=== PATIENT | female | born 1985 | race African-American/Black ===

== ENCOUNTER 2016-12-15 20:25 | Emergency (ER) | payer OTHER ==
[2016-12-15 20:38] VITALS: BP 149/50; PULSE 86; TEMP 99.4; BMI 44.3
[2016-12-15 21:39] LABS: URINE APPEARANCE CLEAR; URINE BILIRUBIN NEGATIVE (NEGATIVE); URINE BLOOD 1+ (NEGATIVE); URINE COLOR STRAW; URINE GLUCOSE (UA) NEGATIVE (NEGATIVE); URINE KETONE NEGATIVE (NEGATIVE); URINE NITRITE NEGATIVE (NEGATIVE); URINE PROTEIN NEGATIVE (NEGATIVE); URINE UROBILINOGEN NEGATIVE mg/dL (0.2-1.0)
[2016-12-15 21:47] LABS: URINE LEUK ESTERASE 1+ (NEGATIVE)
[2016-12-15 21:55] LABS: URINE RBC 6 /hpf (0-3); URINE WBC 24 /hpf (3-5)
--- NOTE | 2016-12-15 22:04 | PDOC ---
History of Present Illness - General Chief Complaint: Vaginal Sxs Stated Complaint: VAGINAL DISCOMFORT Time Seen by Provider: 12/15/16 21:05 History Source: Patient Exam Limitations: No Limitations - History of Present Illness Initial Comments: 12/15/16 23:00 Chief complaint: Vaginal burning History of present illness: Patient is a 31-year-old female with a history of anemia here today complaining of vaginal burning 3 days. Patient is unsure whether she has frequency due to patient being on a diet and has been drinking lots of water and is urinating more frequently. Patient denies any dysuria, urgency or any nausea vomiting or back pain. Patient does report having unprotected sex with the same partner. Patient denies any vaginal discharge. Patient took Monistat yesterday without relief of symptoms. She reports having vaginal discomfort along with the vaginal burning. She denies any nausea, vomiting, or any back pain or any fever. She denies hematuria, her menses finished 4 days ago. 12/15/16 23:06 12/15/16 23:10 Timing/Duration: intermittent Severity: mild (BURNING SENSATION) Associated Symptoms: reports: other (BURNING SENSATION VAGINAL) Past History - Past Medical History Allergies/Adverse Reactions: Allergies Allergy/AdvReac Type Severity Reaction Status Date / Time No Known Allergies Allergy Verified 12/15/16 20:35 Home Medications: Ambulatory Orders Nitrofurantoin Monohyd/M-Cryst [Macrobid -] 100 mg PO BID #14 capsule 12/15/16 Phenazopyridine HCl [Pyridium] 200 mg PO TID #6 tablet 12/15/16 Anemia: Yes - Psycho/Social/Smoking Cessation Hx Suicidal Ideation: No Smoking History: Never smoked Review of Systems - Review of Systems Able to Perform ROS?: Yes Constitutional: No: Symptoms Reported HEENTM: No: Symptoms Reported Respiratory: No: Symptoms reported Cardiac (ROS): No: Symptoms Reported ABD/GI: No: Symptoms Reported : Yes: Burning (SENSATION VAGINAL ), Discharge. No: Dysuria, Frequency, Flank Pain, Hematuria, Urgency Integumentary: No: Symptoms Reported Neurological: No: Symptoms reported *Physical Exam - Vital Signs Last Vital Signs Temp Pulse Resp BP Pulse Ox 99.4 F 86 18 149/50 100 12/15/16 20:36 12/15/16 20:36 12/15/16 20:36 12/15/16 20:36 12/15/16 20:36 - Physical Exam General Appearance: Yes: Appropriately Dressed Respiratory/Chest: positive: Lungs Clear, Normal Breath Sounds. negative: Chest Tender, Respiratory Distress Cardiovascular: positive: Regular Rhythm, Regular Rate, S1, S2 Female Pelvic Exam: positive: cervical os closed, normal adnexa, normal size ovaries, discharge (clear to whitish discharghe ). negative: CMT, lesions, Bartholin mass, Scalene Gland, adnexal tenderness, uterus, Urethra, vaginal bleeding Gastrointestinal/Abdominal: positive: Normal Bowel Sounds, Soft. negative: Organomegaly, Distended, Guarding, Rebound, Tenderness, Hepatomegaly, Spleenomegaly Musculoskeletal: positive: Normal Inspection. negative: CVA Tenderness, CVA Tenderness (R), CVA Tenderness (L) Integumentary: positive: Normal Color ED Treatment Course - ADDITIONAL ORDERS Additional order review: Laboratory Results 12/15/16 12/15/16 21:15 21:15 Urine Color Straw Urine Appearance Clear Urine pH 7.0 Urine Protein Negative Urine Glucose (UA) Negative Urine Ketones Negative Urine Blood 1+ H Urine Nitrite Negative Urine Bilirubin Negative Urine Urobilinogen Negative Ur Leukocyte Esterase 1+ H Urine HCG, Qual Negative Medical Decision Making - Medical Decision Making Patient is a 31-year-old female with a history of anemia here today complaining of vaginal burning 3 days. Patient is unsure whether she has frequency due to patient being on a diet and has been drinking lots of water and is urinating more frequently. Patient denies any dysuria, urgency or any nausea vomiting or back pain. Patient does report having unprotected sex with the same partner. Patient denies any vaginal discharge. Patient took Monistat yesterday without relief of symptoms. She reports having vaginal discomfort along with the vaginal burning. She denies any nausea, vomiting, or any back pain or any fever.She denies hematuria, her menses finished 4 days ago. r/o UTI R/O STD unprotected sex acute cystitis 12/15/16 23:06 PLAN: urinalysis urine c &S genital culture rocephin 250 mg IM now azithromycin 1 gm now macrobid 100 mg bid for 7 days pyridium 200 mg tid for 2 days use condoms at all times follow up with PCP follow with bench hand 12/15/16 22:43 Laboratory Tests 12/15/16 12/15/16 21:15 21:15 Urine Color Straw Urine Appearance Clear Urine pH 7.0 Ur Specific Ralph Pending Urine Protein Negative Urine Glucose (UA) Negative Urine Ketones Negative Urine Blood 1+ H Urine Nitrite Negative Urine Bilirubin Negative Urine Urobilinogen Negative Ur Leukocyte Esterase 1+ H Urine RBC 6 Urine WBC 24 Ur Epithelial Cells Rare Urine HCG, Qual Negative 12/15/16 23:06 12/15/16 23:10 *DC/Admit/Observation/Transfer Diagnosis at time of Disposition: Urinary tract disease, Unprotected sex - Discharge Dispostion Disposition: HOME Condition at time of disposition: Stable - Prescriptions Prescriptions: Nitrofurantoin Monohyd/M-Cryst [Macrobid -] 100 mg PO BID #14 capsule Phenazopyridine HCl [Pyridium] 200 mg PO TID #6 tablet - Patient Instructions Additional Instructions: Do not have any unprotected sex use condoms at all times return to emergency room if symptoms worsen or new symptoms develop Follow-up with your primary care provider as soon as possible May also follow up with your doper operator as soon as possible You may call us on the lab call back line in 3 days for results of pending testing at was not completed today Patient voiced understanding of discharge instructions and all questions were answered
[2016-12-15] MEDS ORDERED: AZITHROMYCIN 1 GM PACKET PO ONE (22:43)
[2016-12-15] MEDS ORDERED: AZITHROMYCIN 1 GM PACKET ONE (22:49)
== END 2016-12-15 23:11 | disposition home or self-care (01) ==
LOC: JERFT 20:25
DX: N30.00 Acute cystitis without hematuria (principal); Z77.21 Contact with and (suspected) exposure to potentially hazardous body fluids
CPT/HCPCS: 36415; 81003; 81015; 84703; 87070; 87086; 87205; 87491; 87591; 99281-25